=== PATIENT | female | born 1965 | race Caucasian/White ===

== ENCOUNTER 2022-10-14 10:29 | Emergency (ER) | payer BC ==
[2022-10-14] MEDS ORDERED: ACETAMINOPHEN TAB 500 MG TAB PO STA (10:59)
--- NOTE | 2022-10-14 11:05 | ED ---
Extremity Problem HPI - General Chief complaint: Extremity Problem,Nontraumatic Stated complaint: lt foot edema Time Seen by Provider: 10/14/22 10:54 Source: patient, RN notes reviewed, old records reviewed Mode of arrival: ambulatory Limitations: no limitations - History of Present Illness Initial comments: 57-year-old female presents with complaints of pain to the top of her left foot that started last night. Denies any injuries. States that it is red and tender to touch. No history of gout, no medicines on a daily basis. Is a former smoker. MD Complaint: extremity pain (left dorsum foot) -: days(s) (1) Location: left, lower extremity (foot) Severity scale (1-10): 8 Quality: sharp Consistency: constant Worsens with: palpation Associated Symptoms: denies other symptoms - Related Data Home Medications Medication Instructions Recorded Confirmed Vitamin D(Unknown Dose) 1 tab PO HS 10/14/22 10/14/22 Previous Rx's Medication Instructions Recorded Cephalexin [Keflex] 500 mg PO Q6HR 6 Days #24 cap 10/14/22 Allergies Allergy/AdvReac Type Severity Reaction Status Date / Time ibuprofen Allergy Rash/Hives Verified 10/14/22 12:03 Review of Systems ROS Statement: Those systems with pertinent positive or pertinent negative responses have been documented in the HPI. ROS Other: All systems not noted in ROS Statement are negative. Past Medical History Past Medical History: No Reported History History of Any Multi-Drug Resistant Organisms: None Reported Additional Past Surgical History / Comment(s): D&C, eye surgery Past Psychological History: Anxiety Smoking Status: Former smoker Past Alcohol Use History: Daily Past Drug Use History: None Reported General Exam Limitations: no limitations General appearance: alert, in no apparent distress Head exam: Present: atraumatic Eye exam: Present: normal appearance. Absent: scleral icterus, conjunctival injection, periorbital swelling, periorbital tenderness Respiratory exam: Absent: respiratory distress, accessory muscle use Cardiovascular Exam: Present: tachycardia Extremities exam: Present: normal capillary refill. Absent: pedal edema Left Knee exam: Present: full ROM, full knee extension. Absent: tenderness, swelling, ecchymosis, deformity, crepitus, dislocation, erythema, effusion Lower Leg exam: Present: full ROM. Absent: tenderness, swelling, palpable cord, Homans' sign Ankle exam: Present: full ROM. Absent: tenderness, swelling Foot/Toe exam: Present: tenderness (dorsum of foot over 3,4,5 metatarsals), swelling, ecchymosis, erythema. Absent: calcaneal tenderness Neurovascular tendon exam: Present: no vascular compromise. Absent: pulse deficit, abnormal cap refill, sensory deficit, tendon deficit, extremity cold to touch, pallor, foot drop Right Knee exam: Present: full ROM, full knee extension. Absent: tenderness Lower Leg exam: Present: full ROM. Absent: tenderness, swelling Ankle exam: Present: full ROM. Absent: tenderness, swelling Foot/Toe exam: Present: full ROM. Absent: tenderness, swelling Neurovascular tendon exam: Present: no vascular compromise. Absent: pulse deficit, abnormal cap refill, extremity cold to touch, pallor, foot drop Neurological exam: Present: alert, oriented X3 Psychiatric exam: Present: normal affect, normal mood Skin exam: Present: warm, dry, normal color. Absent: cyanosis, diaphoretic, pallor Course Vital Signs 10/14/22 10/14/22 10:48 13:28 Temperature 97.9 F 98.0 F Pulse Rate 103 H 74 Respiratory 18 16 Rate Blood Pressure 152/81 113/72 O2 Sat by Pulse 98 96 Oximetry Medical Decision Making - Medical Decision Making X-ray left foot interpreted by me shows no evidence of fracture or dislocation. Radiologist impression no acute fracture dislocation left foot. Hallux valgus positioning first metal tarsophalangeal joint with mild to moderate narrowing. Patient has no pain at this site. Overlying soft tissue is unremarkable.Ultrasound left lower extremity done for patient's concern for DVT. Impression normal flow compressibility and vascular waveforms. No open wounds. Patient denies any injury. She is able to ambulate. On physical exam there is increased erythema to the dorsum of the foot since initial presentation. She'll be placed on antibiotics for cellulitis and directed to follow up with the primary care doctor. She has an appointment on October 27. She is agreeable to this plan of care. Case discussed with Dr. Rider Was pt. sent in by a medical professional or institution (, PA, PATROL SERGEANT, urgent care, hospital, or long term...) When possible be specific @ -No Did you speak to anyone other than the patient for history (EMS, parent, family, police, friend...)? What history was obtained from this source @ -No Did you review nursing and triage notes (agree or disagree)? Why? @ -I reviewed and agree with nursing and triage notes Were old charts reviewed (outside hosp., previous admission, EMS record, old EKG, old radiological studies, urgent care reports/EKG's, long term records)? Report findings @ -No old charts were reviewed Differential Diagnosis (chest pain, altered mental status, abdominal pain women, abdominal pain men, vaginal bleeding, weakness, fever, dyspnea, syncope, headache, dizziness, GI bleed, back pain, seizure, CVA, palpatations, mental health, musculoskeletal)? @ -Cellulitis, gout, fracture, foreign body, DVT, this is not an all inclusive list EKG interpreted by me (3pts min.). @ -n/a X-rays interpreted by me (1pt min.). @ -yes as above CT interpreted by me (1pt min.). @ -None done U/S interpreted by me (1pt. min.). @ -yes no evidence of DVT What testing was considered but not performed or refused? (CT, X-rays, U/S, labs)? Why? @ -None What meds were considered but not given or refused? Why? @ -None Did you discuss the management of the patient with other professionals (professionals i.e. , PA, PATROL SERGEANT, lab, RT, psych nurse, social work lecturer, transformer repairer, teacher, toxics program officer, oil field caser)? Give summary @ -No Was smoking cessation discussed for >3mins.? @ -No Was critical care preformed (if so, how long)? @ -No Were there social determinants of health that impacted care today? How? (Homelessness, low income, unemployed, alcoholism, drug addiction, transportation, low edu. Level, literacy, decrease access to med. care, long-term, rehab)? @ -No Was there de-escalation of care discussed even if they declined (Discuss DNR or withdrawal of care, Hospice)? DNR status @ -No What co-morbidities impacted this encounter? (DM, HTN, Smoking, COPD, CAD, Cancer, CVA, ARF, Chemo, Hep., AIDS, mental health diagnosis, sleep apnea, morbid obesity)? @ -None Was patient admitted / discharged? Hospital course, mention meds given and route, prescriptions, significant lab abnormalities, going to OR and other pertinent info. @ -Discharged Undiagnosed new problem with uncertain prognosis? @ -No Drug Therapy requiring intensive monitoring for toxicity (Heparin, Nitro, Insulin, Cardizem)? @ -No Were any procedures done? @ -No Diagnosis/symptom? @ -Cellulitis left foot Acute, or Chronic, or Acute on Chronic? @ -Acute Uncomplicated (without systemic symptoms) or Complicated (systemic symptoms)? @ -Uncomplicated Side effects of treatment? @ -No Exacerbation, Progression, or Severe Exacerbation? @ -No Poses a threat to life or bodily function? How? (Chest pain, [place], MA, pneumonia, PE, COPD, DKA, ARF, appy, cholecystitis, CVA, Diverticulitis, Homicidal, Suicidal, threat to staff... and all critical care pts) @ -No Disposition Clinical Impression: Cellulitis Disposition: HOME SELF-CARE Condition: Good Instructions (If sedation given, give patient instructions): Cellulitis (ED) Additional Instructions: Rest, ice and elevate foot. Take antibiotics as prescribed. Tylenol and or Motrin as needed for pain or discomfort. Follow-up with the primary care doctor this week. Return to the emergency room with any new or concerning symptoms. Prescriptions: Cephalexin [Keflex] 500 mg PO Q6HR 6 Days #24 cap Is patient prescribed a controlled substance at d/c from ED?: No Referrals: Roseann Benz MD [Primary Care Provider] - 1-2 days Time of Disposition: 13:19
--- NOTE | 2022-10-14 11:20 | XR ---
EXAMINATION TYPE: XR foot complete LT DATE OF EXAM: 10/14/2022 CLINICAL HISTORY: Pain. TECHNIQUE: Frontal, lateral, and oblique images of the left foot are obtained. COMPARISON: None FINDINGS: There is no acute fracture/dislocation evident in the left foot. Hallux valgus positioning first metatarsophalangeal joint with mild to moderate narrowing. Remainder of the left foot appears within normal limits. Overlying soft tissue is unremarkable. IMPRESSION: As above.
--- NOTE | 2022-10-14 13:02 | US ---
EXAMINATION TYPE: US venous doppler duplex LE LT DATE OF EXAM: 10/14/2022 12:38 PM COMPARISON: NONE CLINICAL HISTORY: r/o dvt. left foot swelling and redness since last night, no injury, no ho dvt SIDE PERFORMED: Left TECHNIQUE: The lower extremity deep venous system is examined utilizing real time linear array sonog kim with graded compression, doppler sonography and color-flow sonography. VESSELS IMAGED: Common Femoral Vein Deep Femoral Vein Greater Saphenous Vein * Femoral Vein Popliteal Vein Small Saphenous Vein * Proximal Calf Veins (* superficial vessels) Left Leg: Negative for DVT IMPRESSION: Grayscale, color doppler, spectral doppler imaging performed of the deep veins of the lo wer extremities. There is normal flow, compressibility, vascular waveforms.
[2022-10-14 13:31] VITALS: BP 113/72; PULSE 74; RESP 16; TEMP 98
== END 2022-10-14 13:31 | disposition home or self-care (01) ==
LOC: EC 10:29
DX: L03.116 Cellulitis of left lower limb (principal); F41.9 Anxiety disorder, unspecified; Z87.891 Personal history of nicotine dependence; Z88.8 Allergy status to other drugs, medicaments and biological substances
CPT/HCPCS: 99284

== ENCOUNTER → 2022-11-03 | Outpatient (CLI) | payer BC ==
--- NOTE | 2022-11-03 10:02 | MM ---
Reason for Exam: Screening (asymptomatic). Baseline mammogram. Patient History: Menarche at age 12. First Full-Term at age 20. Postmenopausal. Patient used Hormonal Contraceptives for 3 years. Risk Values: An 5 year model risk: 1.2%. NCI Lifetime model risk: 6.9%. Prior Study Comparison: Patient's first Mammogram. Tissue Density: The breast tissue is heterogeneously dense. This may lower the sensitivity of mammography. Findings: Analyzed By CAD. There is no suspicious group of microcalcifications or new suspicious mass in either breast. Overall Assessment: Negative, BI-RAD 1 Management: Screening Mammogram of both breasts in 1 year. A clinical breast exam by your physician is recommended on an annual basis and results should be correlated with mammographic findings. Electronically signed and approved by: Karl Roa M.D. Radiologis
--- NOTE | 2022-11-03 11:12 | BD ---
EXAMINATION TYPE: Axial Bone Density DATE OF EXAM: 11/03/2022 CLINICAL HISTORY: 57 years old Female. ICD-10 CODE: N958 JESU AND PERIMENO DISORDER Height: 5'5 1/2 Weight: `147 FRAX RISK QUESTIONS: Secondary Osteoporosis: RISK FACTORS HISTORY OF: Postmenopausal woman: y MEDICATIONS: Additional Medications: 0 Additional History: EXAM MEASUREMENTS: Bone mineral densitometry was performed using the [employer] System. Bone mineral density as measured about the Lumbar spine is: ----- L1-L4(G/cm2): 1.285 T Score Values are as follows: ----- L1: -0.5 ----- L2: 0.0 ----- L3: 1.2 ----- L4: 2.4 ----- L1-L4: 0.0 Z Score Values are as follows: ----- L1: 0.5 ----- L2: 1.1 ----- L3: 2.2 ----- L4: 3.4 ----- L1-L4: 1.9 Bone mineral density about the R hip (g/cm2): 0.804 Bone mineral density about the L hip (g/cm2): 0.855 T Score values are as follows: -----R Neck:-2.0 -----L Neck: -1.5 -----R Total: -1.6 -----L Total: -1.2 Z Score values are as follows: -----R Neck: -0.9 -----L Neck: -0.4 -----R Total: -0.8 -----L Total: -0.4 FRAX%s: The graph provided illustrates a 9.0% chance for a major osteoporotic fx and a 1.1% chance fo r the hips probability for fx in 10 years time. IMPRESSION: Osteopenia (T Score between -2.5 and -1). There is slightly increased risk of fracture and the patient may be considered for treatment. Re-Screen 2-5 years. NOTE: T-SCORE=SD OF THE YOUNG ADULT MEAN.
== END | disposition home or self-care (01) ==
LOC: RADMAMWWP 06:51
PROVIDERS: ATTEND Internal Medicine
DX: Z12.31 Encounter for screening mammogram for malignant neoplasm of breast (principal); M85.89 Other specified disorders of bone density and structure, multiple sites; N95.8 Other specified menopausal and perimenopausal disorders
CPT/HCPCS: 77067; 77080